=== PATIENT | male | born 1975 | race Native Hawaiian/Other Pacific Islander ===

== ENCOUNTER 2018-11-10 09:27 | Emergency (ER) | payer MEDICAID ==
[2018-11-10 09:35] VITALS: O2SAT 100
--- NOTE | 2018-11-10 11:02 | C.PDOC ---
History Of Present Illness 43 y/o male presents to the ER complaining of left hand pain which began after an angle bar fell on his hand yesterday.Patient states that he has pain mainly in the left middle finger.Patient reports that he did not take any medications for the pain. Denies having weakness, numbness, and parasthesias. Time Seen by Provider: 11/10/18 09:41 Chief Complaint (Nursing): Finger,Hand,&Wrist History Per: Patient History/Exam Limitations: no limitations Onset/Duration Of Symptoms: Days Current Symptoms Are (Timing): Still Present Severity: Moderate Past Medical History Reviewed: Historical Data, Nursing Documentation, Vital Signs Vital Signs: Last Vital Signs Temp 97.6 F 11/10/18 09:31 Pulse 84 11/10/18 09:31 Resp 18 11/10/18 09:31 BP 129/78 11/10/18 09:31 Pulse Ox 100 11/10/18 09:31 - Medical History PMH: No Chronic Diseases Other Surgeries: Hx of surgeries Family History: States: No Known Family Hx - Social History Hx Alcohol Use: No Hx Substance Use: No - Immunization History Hx Tetanus Toxoid Vaccination: No Hx Influenza Vaccination: No Hx Pneumococcal Vaccination: No Review Of Systems Except As Marked, All Systems Reviewed And Found Negative. Musculoskeletal: Positive for: Hand Pain (left hand pain) Neurological: Negative for: Weakness, Numbness Physical Exam - Physical Exam Appears: Non-toxic, No Acute Distress Skin: Normal Color, Warm, Dry, Other (skin intact to left hand, no erythema, no ecchymosis) Head: Atraumatic, Normacephalic Eye(s): bilateral: Normal Inspection Extremity: Normal ROM (pt can move all 5 fingers in left hand freely), Tenderness (mild tenderness to palpation over 1st phalanx of left middle finger), Capillary Refill (< 2 seconds), Swelling (mild swelling to 1st phalanx of left middle finger) Pulses: Left Radial: Normal Neurological/Psych: Oriented x3, Normal Speech, Normal Motor, Normal Sensation ED Course And Treatment O2 Sat by Pulse Oximetry: 100 (RA) Pulse Ox Interpretation: Normal Medical Decision Making Medical Decision Making: Plan: --X-Ray-Left Hand Disposition Counseled Patient/Family Regarding: Studies Performed, Diagnosis, Need For Followup - Disposition Referrals: [facility] [Outside] [facility] [Outside] Disposition: HOME/ ROUTINE Disposition Time: 11:00 Additional Instructions: OSVALDO SPRAGUE, thank you for letting us take care of you today. Your provider was Elizabeth Shepherd MD and you were treated for FINGER PAIN. The emergency medical care you received today was directed at your acute symptoms. If you were prescribed any medication, please fill it and take as directed. It may take several days for your symptoms to resolve. Return to the Emergency Department if your symptoms worsen, do not improve, or if you have any other problems. Please contact your doctor or call one of the physicians/clinics you have been referred to that are listed on the Patient Visit Information form that is included in your discharge packet. Bring any paperwork you were given at discharge with you along with any medications you are taking to your follow up visit. Our treatment cannot replace ongoing medical care by a primary care provider outside of the emergency department. Thank you for allowing the [facility] team to be part of your care today. If you had an X-Ray or CT scan: A Radiologist will review the ED reading if any change in treatment is needed we will contact you. If you had a blood, urine, or wound culture: It will take several days for the results, if any change in treatment is needed we will contact you. If you had an STI test: It will take 48 hours for the results. Please call after 1 week if you have not heard back. Instructions: Contusion (DC), Common Finger Injuries (DC) Forms: General Discharge Instructions, Easiest Credit Card To Get Approved For [facility] ([place]), Work Excuse - POA Present On Arrival: None - Clinical Impression Clinical Impression: Finger contusion - Scribe Statement The provider has reviewed the documentation as recorded by the Scribe [place] Provider Attestation: All medical record entries made by the Scribe were at my direction and personally dictated by me. I have reviewed the chart and agree that the record accurately reflects my personal performance of the history, physical exam, me dical decision making, and the department course for this patient. I have also personally directed, reviewed, and agree with the discharge instructions and disposition.
[2018-11-10 11:07] VITALS: BP 109/73; PULSE 75; RESP 20; TEMP 98.3
--- NOTE | 2018-11-10 14:44 | RAD ---
PROCEDURE: Left Hand Radiographs. HISTORY: injury to 3 4 fingers COMPARISON: None. TECHNIQUE: 3 views obtained. FINDINGS: BONES: Normal. No fracture. 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 SOFT TISSUES: There is a small elliptical shaped radiopaque density within the palmar soft tissues adjacent to the radial aspect distal phalanx 3rd finger. This could represent some mild posttraumatic mineralization though a tiny foreign body not excluded. OTHER FINDINGS: None. IMPRESSION: No evidence of acute displaced fracture nor dislocation. Questionable small focal area of posttraumatic mineralization or possibly small opaque foreign body within the palmar soft tissues adjacent to the radial aspect distal phalanx 3rd finger.. 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
== END 2018-11-10 11:09 | disposition home or self-care (01) ==
LOC: C.ER 09:27
DX: S60.032A Contusion of left middle finger without damage to nail, initial encounter (principal); W22.8XXA Striking against or struck by other objects, initial encounter